=== PATIENT | female | born 1955 | race Hispanic/Latino ===

== ENCOUNTER 2017-03-04 10:01 | Outpatient (CLI) | payer BC ==
--- NOTE | 2017-03-04 14:04 | Magnetic Resonance Report ---
MRI BRAIN WITHOUT AND WITH CONTRAST: 03/04/17 00:00:00 CLINICAL: Lung cancer. TECHNIQUE: Axial diffusion, T1, FLAIR, gradient echo T2*, and coronal and axial T2 and sagittal T1 plus coronal and axial postcontrast T1 sequences on a 1.5 Keira magnet. 15.0 cc of Multihance was injected intravenously for the contrast portion of the exam. Consent was obtained prior to the administration of contrast. FINDINGS: The ventricles and sulci are large for age. Extensive lateral paraventricular white matter hyperintensities on FLAIR and T2. No restricted diffusion. No mass or enhancing lesion. No hemorrhage, edema or extra-axial collection. Normal pituitary and optic chiasm. The brainstem and cerebellum are normal. Intact vascular flow voids. The orbits, sinuses and soft tissues are normal. Normal calvarium and skull base. IMPRESSION: 1. No evidence of metastasis. 2. Global cortical atrophy and extensive bilateral chronic white matter microangiopathy.
== END 2017-03-04 10:02 | disposition home or self-care (01) ==
LOC: SPVIMAG 10:01
PROVIDERS: ATTEND Internal Medicine Hematology & Oncology
DX: C34.12 Malignant neoplasm of upper lobe, left bronchus or lung (principal); G31.89 Other specified degenerative diseases of nervous system; I73.89 Other specified peripheral vascular diseases
CPT/HCPCS: 70553; A9577

== ENCOUNTER 2017-03-24 05:56 | Outpatient (CLI) | payer BC ==
--- NOTE | 2017-03-24 14:57 | PET Report ---
PET SB TO MT SUBSEQUENT: HISTORY: Malignant neoplasm of upper lobe, left lung, restaging. TECHNIQUE: 15.1 millicuries F-18 FDG was administered intravenously. Noncontrast CT images and PET images were obtained from the skull base to the proximal thighs. Fused images were reviewed on a workstation. The patient's blood glucose level measured 97. COMPARISON: 09/23/16. FINDINGS: BRAIN: physiologic FDG uptake in the imaged brain. NECK: physiologic FDG uptake. MEDIASTINUM: physiologic FDG uptake. LUNGS: physiologic FDG uptake. Partial left pneumonectomy changes are suspected. No recurrent pulmonary mass or nodule. PLEURA/PERICARDIUM: physiologic FDG uptake. THORACIC LYMPH NODES: physiologic FDG uptake. HEPATOBILIARY: physiologic FDG uptake. Mean liver SUV measures 3.6. PANCREAS: physiologic FDG uptake. SPLEEN: physiologic FDG uptake. ADRENAL GLANDS: physiologic FDG uptake. No change in the 1.2 cm left adrenal adenoma. KIDNEYS/RENAL COLLECTING SYSTEMS: physiologic FDG uptake. BOWEL/MESENTERY: physiologic FDG uptake. PELVIC VISCERA: physiologic FDG uptake. ABDOMINAL/PELVIC LYMPH NODES: physiologic FDG uptake. MUSCULOSKELETAL: physiologic FDG uptake. There are numerous sclerotic bony lesions throughout the thoracic spine, lumbar spine, pelvis, and left scapula. Overall these appear stable in size and contour since the previous exam but hypermetabolic activity has resolved. Left hip replacement has been performed since the previous exam. IMPRESSION: A positive response to therapy is demonstrated since 10/01 exam. The patient is status post partial left pneumonectomy. There are numerous sclerotic bony lesions which appear stable in size and number. Hypermetabolic activity has resolved in these bony lesions since 09/23/16. No new areas of disease are identified.
== END 2017-03-24 05:57 | disposition home or self-care (01) ==
LOC: PET 05:56
PROVIDERS: ATTEND Internal Medicine Hematology & Oncology
DX: C34.12 Malignant neoplasm of upper lobe, left bronchus or lung (principal); D35.02 Benign neoplasm of left adrenal gland; M89.8X8 Other specified disorders of bone, other site; Z96.642 Presence of left artificial hip joint; Z90.2 Acquired absence of lung [part of]
CPT/HCPCS: 78815; 82962; A9552

== ENCOUNTER 2017-05-24 11:30 | Outpatient (CLI) | payer BC | END 2017-05-24 11:31 | disposition home or self-care (01) | LOC: CARD 11:30 | PROVIDERS: ATTEND Internal Medicine Hematology & Oncology | DX: C34.12 Malignant neoplasm of upper lobe, left bronchus or lung (principal) | CPT/HCPCS: 93005; 93010 ==

== ENCOUNTER 2017-06-16 07:09 | Outpatient (CLI) | payer BC ==
--- NOTE | 2017-06-16 12:51 | PET Report ---
PET/CT:06/16/17 07:09:00 CLINICAL: Lung cancer restaging. RADIOPHARMACEUTICAL: 14.33mCi F18-FDG. COMPARISON: 03/24/17 PET/CT TECHNIQUE- Following intravenous injection of F-18 FDG and an approximately 60 minute uptake period, CT and PET images from the mid skull to the upper thighs were acquired with the patient in the fasted state. No contrast was administered. The CT protocol used for this PET CT study is designed for attenuation correction and anatomic localization of PET abnormalities. This rug renovator CT is not desired to produce and cannot replace, fgvsp-cg-tfy-art diagnostic CT scans with specific imaging protocols for different body parts and indications. Plasma glucose at the time of this test: 89g/dl. The standardized uptake values (SUV) are normalized to patient body weight and indicate the highest activity concentration (SUV max) in a given disease site. FINDINGS: Brain--Physiologic FDG uptake in the visualized regions of the brain. Neck--Physiologic FDG uptake . Chest--Physiologic FDG uptake in mediastinal blood pool and myocardium. Lungs--No abnormal uptake. No pulmonary nodule or mass. Pleura/pericardium--No abnormal uptake. Stable small loculated inferior medial left pleural effusion. Thoracic nodes--No abnormal uptake. Hepatobiliary--No abnormal uptake. Liver background SUV mean, as a reference for comparing FDG studies, is 4.2 compared to 3.6 on the last exam. No liver mass. Spleen--No abnormal uptake. Pancreas--No abnormal uptake. Adrenal Glands--No abnormal uptake. Stable 1.2 cm left adrenal adenoma. Kidneys/Ureters/Bladder--No abnormal uptake. Abdominopelvic Nodes--No abnormal uptake. Bowel/Peritoneum/Mesentery--No abnormal uptake. Pelvic organs--No abnormal uptake. Bones/Soft Tissues--No abnormal uptake. Stable numerous non-FDG evident sclerotic bone metastases involving the thoracic spine, left scapula, lumbar spine, pelvis and right femur. No new bone lesions. Other findings: Intact bilateral breast implants. Status post cholecystectomy. Status post hysterectomy. Status post left total hip replacement. IMPRESSION- Stable disease
== END 2017-06-16 07:10 | disposition home or self-care (01) ==
LOC: PET 07:09
PROVIDERS: ATTEND Internal Medicine Hematology & Oncology
DX: C34.12 Malignant neoplasm of upper lobe, left bronchus or lung (principal); J90 Pleural effusion, not elsewhere classified; D35.02 Benign neoplasm of left adrenal gland; Z98.82 Breast implant status; Z90.49 Acquired absence of other specified parts of digestive tract; Z90.710 Acquired absence of both cervix and uterus; Z96.642 Presence of left artificial hip joint; Z79.899 Other long term (current) drug therapy
CPT/HCPCS: 78815; 82962; A9552

== ENCOUNTER 2017-09-01 09:16 | Outpatient (CLI) | payer BC ==
--- NOTE | 2017-09-05 10:07 | PET Report ---
PET/CT:09/01/17 09:16:00 CLINICAL: RADIOPHARMACEUTICAL: mCi F18-FDG. COMPARISON: PET/CT TECHNIQUE- Following intravenous injection of F-18 FDG and an approximately 60 minute uptake period, CT and PET images from the mid skull to the upper thighs were acquired with the patient in the fasted state. No contrast was administered. The CT protocol used for this PET CT study is designed for attenuation correction and anatomic localization of PET abnormalities. This real estate agent CT is not desired to produce and cannot replace, knsdv-el-dyo-art diagnostic CT scans with specific imaging protocols for different body parts and indications. Plasma glucose at the time of this test: g/dl. The standardized uptake values (SUV) are normalized to patient body weight and indicate the highest activity concentration (SUV max) in a given disease site. FINDINGS: Brain--Physiologic FDG uptake in the visualized regions of the brain. Neck--Physiologic FDG uptake . Chest--Physiologic FDG uptake in mediastinal blood pool and myocardium. Lungs--No abnormal uptake. A 3-4 mm noncalcified right upper lobe non-FDG avid lung nodule is now apparent on a different scanner and in retrospect is stable. Pleura/pericardium--Stable Non--FDG avid loculated left inferior medial pleural collection. Thoracic nodes--No abnormal uptake. Hepatobiliary--No abnormal uptake. Liver background SUV mean, as a reference for comparing FDG studies, is 3.8 compared to 3.5 on the last exam. No liver mass. Spleen--No abnormal uptake. Pancreas--No abnormal uptake. Adrenal Glands--No abnormal uptake. Kidneys/Ureters/Bladder--No abnormal uptake. Abdominopelvic Nodes--No abnormal uptake. Bowel/Peritoneum/Mesentery--No abnormal uptake. Pelvic organs--No abnormal uptake. Bones/Soft Tissues--No abnormal uptake. Stable numerous non-FDG avid sclerotic bone metastases involving the thoracic spine, left scapula, lumbar spine, pelvis and right femur. No new bone lesions. Other findings: Intact bilateral breast implants. Status post cholecystectomy, hysterectomy and left total hip replacement. IMPRESSION- Stable disease.
== END 2017-09-01 09:17 | disposition home or self-care (01) ==
LOC: PET 09:16
PROVIDERS: ATTEND Internal Medicine Hematology & Oncology
DX: C79.51 Secondary malignant neoplasm of bone (principal); C79.89 Secondary malignant neoplasm of other specified sites; C34.12 Malignant neoplasm of upper lobe, left bronchus or lung; Z79.899 Other long term (current) drug therapy; Z98.82 Breast implant status; Z90.49 Acquired absence of other specified parts of digestive tract; Z90.710 Acquired absence of both cervix and uterus; Z96.642 Presence of left artificial hip joint
CPT/HCPCS: 78815; 82962; A9552

== ENCOUNTER 2017-12-29 09:34 | Outpatient (CLI) | payer OTHER ==
--- NOTE | 2018-01-05 08:45 | PET Report ---
PET/CT:12/29/17 09:34:00 CLINICAL: Lung cancer restaging. RADIOPHARMACEUTICAL: 16.4mCi F18-FDG. COMPARISON: 09/01/17 PET/CT TECHNIQUE- Following intravenous injection of F-18 FDG and an approximately 60 minute uptake period, CT and PET images from the mid skull to the upper thighs were acquired with the patient in the fasted state. No contrast was administered. The CT protocol used for this PET CT study is designed for attenuation correction and anatomic localization of PET abnormalities. This crane rigger CT is not desired to produce and cannot replace, krblo-ds-mnd-art diagnostic CT scans with specific imaging protocols for different body parts and indications. Plasma glucose at the time of this test: 54g/dl. The standardized uptake values (SUV) are normalized to patient body weight and indicate the highest activity concentration (SUV max) in a given disease site. FINDINGS: Brain--Physiologic FDG uptake in the visualized regions of the brain. Neck--Physiologic FDG uptake . Chest--Physiologic FDG uptake in mediastinal blood pool and myocardium. Lungs--No abnormal uptake. No pulmonary nodule or mass. Status post partial left pneumonectomy with stable scar. Pleura/pericardium--No abnormal uptake. Thoracic nodes--No abnormal uptake. Hepatobiliary--No abnormal uptake. Liver background SUV mean, as a reference for comparing FDG studies, is 2.9 compared to 3.8 on the last exam. No liver mass. Spleen--No abnormal uptake. Pancreas--No abnormal uptake. Adrenal Glands--No abnormal uptake. Kidneys/Ureters/Bladder--No abnormal uptake. Abdominopelvic Nodes--No abnormal uptake. Bowel/Peritoneum/Mesentery--No abnormal uptake. Pelvic organs--No abnormal uptake. Bones/Soft Tissues--No abnormal uptake. Stable numerous non-FDG avid sclerotic bone metastases involving the thoracic spine, left scapula, lumbar spine, pelvis, sacrum and right femur. No new bone lesions. Other findings: Intact bilateral breast implants. Status post cholecystectomy, hysterectomy and left total hip replacement. IMPRESSION- Stable disease.
== END 2017-12-29 09:35 | disposition home or self-care (01) ==
LOC: PET 09:34
PROVIDERS: ATTEND Internal Medicine Hematology & Oncology
DX: C34.12 Malignant neoplasm of upper lobe, left bronchus or lung (principal); R79.89 Other specified abnormal findings of blood chemistry; Z90.2 Acquired absence of lung [part of]; Z98.82 Breast implant status; Z90.49 Acquired absence of other specified parts of digestive tract; Z90.710 Acquired absence of both cervix and uterus; Z96.642 Presence of left artificial hip joint
CPT/HCPCS: 78815; 82962; A9552

== ENCOUNTER 2018-03-23 11:51 | Outpatient (CLI) | payer MEDICARE ==
--- NOTE | 2018-03-24 12:06 | PET Report ---
PET/CT:03/23/18 11:51:00 CLINICAL: Lung cancer restaging. RADIOPHARMACEUTICAL: 14.36mCi F18-FDG. COMPARISON: 12/29/17 PET/CT TECHNIQUE- Following intravenous injection of F-18 FDG and an approximately 60 minute uptake period, CT and PET images from the mid skull to the upper thighs were acquired with the patient in the fasted state. No contrast was administered. The CT protocol used for this PET CT study is designed for attenuation correction and anatomic localization of PET abnormalities. This dredge pipe installer CT is not desired to produce and cannot replace, gdmkw-lt-haz-art diagnostic CT scans with specific imaging protocols for different body parts and indications. Plasma glucose at the time of this test: 106g/dl. The standardized uptake values (SUV) are normalized to patient body weight and indicate the highest activity concentration (SUV max) in a given disease site. FINDINGS: Brain--Physiologic FDG uptake in the visualized regions of the brain. Neck--Physiologic FDG uptake in mucosal structures. Chest--Physiologic FDG uptake in mediastinal blood pool and myocardium. Lungs--No abnormal uptake. No pulmonary nodule or mass. Status post left partial pneumonectomy with stable scar. Pleura/pericardium--No abnormal uptake. Stable loculated medial left lower lobe pleural fluid. Thoracic nodes--No abnormal uptake. Hepatobiliary--No abnormal uptake. Liver background SUV mean, as a reference for comparing FDG studies, is 3.1 compared to 2.8 on the last exam. No liver mass. Spleen--No abnormal uptake. Pancreas--No abnormal uptake. Adrenal Glands--No abnormal uptake. Kidneys/Ureters/Bladder--No abnormal uptake. Abdominopelvic Nodes--No abnormal uptake. Bowel/Peritoneum/Mesentery--No abnormal uptake. Pelvic organs--No abnormal uptake. Bones/Soft Tissues--No abnormal uptake. Stable numerous non-FDG avid sclerotic bone metastases involving the thoracic spine, left scapula, lumbar spine, pelvis, sacrum and right femur. No new bone lesions. Other findings: Bilateral breast implants. Status post cholecystectomy, hysterectomy and left total hip replacement. IMPRESSION- Stable disease.
== END 2018-03-23 11:52 | disposition home or self-care (01) ==
LOC: PET 11:51
PROVIDERS: ATTEND Internal Medicine Hematology & Oncology
DX: C34.12 Malignant neoplasm of upper lobe, left bronchus or lung (principal); Z98.890 Other specified postprocedural states; Z90.49 Acquired absence of other specified parts of digestive tract; Z90.710 Acquired absence of both cervix and uterus; Z96.642 Presence of left artificial hip joint; Z98.82 Breast implant status
CPT/HCPCS: 78815; 82962; A9552

== ENCOUNTER 2018-05-23 09:47 | Outpatient (CLI) | payer MEDICARE ==
[2018-05-23 10:27] LABS: Blood Urea Nitrogen 19 mg/dL (7-17)
--- NOTE | 2018-05-23 13:18 | Magnetic Resonance Report ---
MRI BRAIN WITHOUT AND WITH CONTRAST: 05/23/18 10:14:00 CLINICAL: Lung cancer. COMPARISON: 03/04/17 TECHNIQUE: Axial diffusion, T1, FLAIR, gradient echo T2*, and coronal and axial T2 and sagittal T1 plus coronal and axial postcontrast T1 sequences on a 1.5 Keira magnet. 13.0 cc of Multihance was injected intravenously for the contrast portion of the exam. Consent was obtained prior to the administration of contrast. FINDINGS: Stable global cortical atrophy with enlargement of ventricles and sulci. No restricted diffusion. Stable extensive bilateral periventricular white matter hyperintensities on FLAIR and T2. No mass or enhancing lesion. No acute or subacute hemorrhage, edema or extra-axial collection. A few bilateral tiny chronic micro-bleeds are new compared to the previous exam and are identified in the left parietal, left frontal and bilateral occipital lobes. Normal pituitary and optic chiasm. The brainstem and cerebellum are normal. Intact vascular flow voids. The orbits, sinuses and soft tissues are normal. Normal calvarium and skull base. IMPRESSION: 1. No evidence of metastasis. 2. No acute change. 3. Stable global cortical atrophy and extensive bilateral chronic white matter microangiopathy. 4. New bilateral chronic micro-bleeds which are consistent with cerebral amyloid angiopathy.
== END 2018-05-23 09:48 | disposition home or self-care (01) ==
LOC: MRI 09:47
PROVIDERS: ATTEND Internal Medicine Hematology & Oncology
DX: C34.12 Malignant neoplasm of upper lobe, left bronchus or lung (principal); G31.89 Other specified degenerative diseases of nervous system; I73.89 Other specified peripheral vascular diseases
CPT/HCPCS: 36415; 70553; 82565; 84520; A9577

== ENCOUNTER 2018-06-29 08:15 | Outpatient (CLI) | payer MEDICARE ==
--- NOTE | 2018-06-30 11:37 | PET Report ---
PET/CT:06/29/18 08:15:00 CLINICAL: Lung cancer restaging. RADIOPHARMACEUTICAL: 14.656mCi F18-FDG. COMPARISON: 03/23/18 PET/CT TECHNIQUE- Following intravenous injection of F-18 FDG and an approximately 60 minute uptake period, CT and PET images from the mid skull to the upper thighs were acquired with the patient in the fasted state. No contrast was administered. The CT protocol used for this PET CT study is designed for attenuation correction and anatomic localization of PET abnormalities. This live in companion CT is not desired to produce and cannot replace, unezz-yz-gdw-art diagnostic CT scans with specific imaging protocols for different body parts and indications. Plasma glucose at the time of this test: 90g/dl. The standardized uptake values (SUV) are normalized to patient body weight and indicate the highest activity concentration (SUV max) in a given disease site. FINDINGS: Brain--Physiologic FDG uptake in the visualized regions of the brain. Neck--New focal FDG uptake in the left tonsillar region with SUV 3.5. Either the left palatine tonsil is enlarged or there is an FDG avid lymph node. A second focus of FDG uptake in the right retropharynx with SUV 3.5. No distinct lymph node or mass is identified. Chest--Physiologic FDG uptake in mediastinal blood pool and myocardium. The right breast implant has collapsed as the last exam. The left breast implant is intact. Lungs--No abnormal uptake. No pulmonary nodule or mass. Status post left partial pneumonectomy and stable scar. Pleura/pericardium--No abnormal uptake. A stable loculated medial left lower lobe pleural effusion. Thoracic nodes--No abnormal uptake. Hepatobiliary--No abnormal uptake. Liver background SUV mean, as a reference for comparing FDG studies, is 3.1 compared to 2.8 on the last exam. No liver mass. Spleen--No abnormal uptake. Pancreas--No abnormal uptake. Adrenal Glands--No abnormal uptake. Kidneys/Ureters/Bladder--No abnormal uptake. Abdominopelvic Nodes--No abnormal uptake. Bowel/Peritoneum/Mesentery--No abnormal uptake. Pelvic organs--No abnormal uptake. Bones/Soft Tissues--No abnormal uptake. Stable numerous non-FDG avid sclerotic bone lesions involving the thoracic spine, left scapula, lumbar spine, pelvis, sacrum and right femur. New new bone lesions. IMPRESSION- 1. New nonspecific FDG uptake in the left palatine tonsil or lymph node adjacent to the tonsil and new nonspecific right retropharyngeal FDG uptake. Consider CT neck with contrast to assess for lymphadenopathy. 2. Status post left partial pneumonectomy with no evidence of chest recurrence or metastasis. 3. Stable skeletal metastasis. 4. No evidence of hepatic or adrenal metastasis. 5. Right breast implant rupture which is a new finding.
== END 2018-06-29 08:16 | disposition home or self-care (01) ==
LOC: PET 08:15
PROVIDERS: ATTEND Internal Medicine Hematology & Oncology
DX: C34.12 Malignant neoplasm of upper lobe, left bronchus or lung (principal); Z90.2 Acquired absence of lung [part of]
CPT/HCPCS: 78815; 82962; A9552

== ENCOUNTER 2018-09-28 10:56 | Outpatient (CLI) | payer MEDICARE ==
--- NOTE | 2018-10-02 08:46 | PET Report ---
PET/CT:09/28/18 10:56:00 CLINICAL: Lung cancer restaging. RADIOPHARMACEUTICAL: 11.458mCi F18-FDG. COMPARISON: 06/29/18 PET/CT TECHNIQUE- Following intravenous injection of F-18 FDG and an approximately 60 minute uptake period, CT and PET images from the mid skull to the upper thighs were acquired with the patient in the fasted state. No contrast was administered. The CT protocol used for this PET CT study is designed for attenuation correction and anatomic localization of PET abnormalities. This aerodynamics professor CT is not desired to produce and cannot replace, cpspn-zf-twk-art diagnostic CT scans with specific imaging protocols for different body parts and indications. Plasma glucose at the time of this test: 104g/dl. The standardized uptake values (SUV) are normalized to patient body weight and indicate the highest activity concentration (SUV max) in a given disease site. FINDINGS: Brain--Physiologic FDG uptake in the visualized regions of the brain. Neck--Physiologic FDG uptake in mucosal structures. The previously described bilateral tonsillar uptake has resolved. No mass or lymphadenopathy. Chest--Physiologic FDG uptake in mediastinal blood pool and myocardium. Lungs--No abnormal uptake. No pulmonary nodule or mass. Status post left partial pneumonectomy with stable scar. Pleura/pericardium--No abnormal uptake. Stable loculated medial left lower lobe pleural effusion. Thoracic nodes--No abnormal uptake. Hepatobiliary--No abnormal uptake. Liver background SUV mean, as a reference for comparing FDG studies, is 3.1 compared to 2.8 on the last exam. No liver mass. Spleen--No abnormal uptake. Pancreas--No abnormal uptake. Adrenal Glands--No abnormal uptake. Kidneys/Ureters/Bladder--No abnormal uptake. Abdominopelvic Nodes--No abnormal uptake. Bowel/Peritoneum/Mesentery--No abnormal uptake. Pelvic organs--No abnormal uptake. Bones/Soft Tissues--No abnormal uptake. Stable sclerotic bone metastases involving the thoracic and lumbar spine, scapulae, pelvic bones and proximal left femur. No new lesions. IMPRESSION- Stable disease.
== END 2018-09-28 10:57 | disposition home or self-care (01) ==
LOC: PET 10:56
PROVIDERS: ATTEND Internal Medicine Hematology & Oncology
DX: C34.12 Malignant neoplasm of upper lobe, left bronchus or lung (principal); J90 Pleural effusion, not elsewhere classified
CPT/HCPCS: 78815; 82962; A9552

== ENCOUNTER 2018-12-21 06:12 | Outpatient (CLI) | payer MEDICARE ==
--- NOTE | 2018-12-21 11:07 | PET Report ---
PET/CT:12/21/18 06:12:00 CLINICAL: Lung cancer restaging. RADIOPHARMACEUTICAL: 13.02mCi F18-FDG. COMPARISON: 09/28/18 PET/CT TECHNIQUE- Following intravenous injection of F-18 FDG and an approximately 60 minute uptake period, CT and PET images from the mid skull to the upper thighs were acquired with the patient in the fasted state. No contrast was administered. The CT protocol used for this PET CT study is designed for attenuation correction and anatomic localization of PET abnormalities. This director nursery school CT is not desired to produce and cannot replace, efbrf-ej-dln-art diagnostic CT scans with specific imaging protocols for different body parts and indications. Plasma glucose at the time of this test: 89g/dl. The standardized uptake values (SUV) are normalized to patient body weight and indicate the highest activity concentration (SUV max) in a given disease site. FINDINGS: Brain--Physiologic FDG uptake in the visualized regions of the brain. Neck--Physiologic FDG uptake in mucosal structures and no abnormal uptake. Chest--Physiologic FDG uptake in mediastinal blood pool and myocardium. Bilateral breast implants have been removed since the last exam. Lungs--No abnormal uptake. No pulmonary nodule or mass. Stable scar status post left partial pneumonectomy. Pleura/pericardium--No abnormal uptake. Stable loculated medial left lower lobe pleural effusion. Thoracic nodes--No abnormal uptake. Hepatobiliary--No abnormal uptake. Liver background SUV mean, as a reference for comparing FDG studies, is 3.3 compared to 3.8 on the last exam. No liver mass. Spleen--No abnormal uptake. Pancreas--No abnormal uptake. Adrenal Glands--No abnormal uptake. Kidneys/Ureters/Bladder--No abnormal uptake. Abdominopelvic Nodes--No abnormal uptake. Bowel/Peritoneum/Mesentery--No abnormal uptake. Pelvic organs--No abnormal uptake. Bones/Soft Tissues--No abnormal uptake. Stable numerous sclerotic bone metastases involving the thoracic and lumbar spine, scapulae, pelvic bones and proximal left femur. No new bone lesions. IMPRESSION- Stable disease.
== END 2018-12-21 06:13 | disposition home or self-care (01) ==
LOC: PET 06:12
PROVIDERS: ATTEND Internal Medicine Hematology & Oncology
DX: C34.12 Malignant neoplasm of upper lobe, left bronchus or lung (principal)
CPT/HCPCS: 78815; 82962; A9552

== ENCOUNTER 2019-03-15 11:12 | Outpatient (CLI) | payer MEDICARE ==
[2019-03-15 13:38] LABS: Blood Urea Nitrogen 22 mg/dL (7-17)
--- NOTE | 2019-03-15 16:22 | Magnetic Resonance Report ---
PROCEDURE: MR BRAIN WO/W CON TECHNIQUE: Magnetic resonance imaging of the brain was performed before and after the IV injection o f paramagnetic contrast. HISTORY: MALIGNANT NEOPLASM OF UPPER LEFT BRONCHUS OR LUNG COMPARISONS: None currently available. FINDINGS: T2/FLAIR hyperintensities in the periventricular and subcortical white matter are nonspecific. Differ ential diagnosis includes migraines, microvascular ischemic disease, demyelinating process, encephali tis/encephalopathy, and trauma. Midline structures are unremarkable. There is no tonsillar ectopy. Age appropriate parker-white matter differentiation is noted. There is no hydrocephalus. There is no mass. There is no hemorrhage. There is no midline shift. There is no restricted diffusion to suggest acute ischemia. The CP angles are grossly noted. Major flow voids are present. After the administration of contrast, no abnormal enhancing lesions are identified. Paranasal sinuses are unremarkable. Globes are intact. Calvarial signal characteristics are grossly unremarkable. Extracranial soft tissues are intact. Mild mucosal thickening both ethmoid sinuses. IMPRESSION: * No acute intracranial findings. * Chronic ischemic disease. This document is electronically signed by Vaibhav Rosario MD., Mar 15 2019 04:20:43 PM ET
--- NOTE | 2019-03-19 11:04 | PET Report ---
PET/CT:03/15/19 11:12:00 CLINICAL: Lung cancer restaging. RADIOPHARMACEUTICAL: 13.27mCi F18-FDG. COMPARISON: 12/21/18 PET/CT TECHNIQUE- Following intravenous injection of F-18 FDG and an approximately 60 minute uptake period, CT and PET images from the mid skull to the upper thighs were acquired with the patient in the fasted state. No contrast was administered. The CT protocol used for this PET CT study is designed for attenuation correction and anatomic localization of PET abnormalities. This poultry field service technician CT is not desired to produce and cannot replace, qbgck-rq-odh-art diagnostic CT scans with specific imaging protocols for different body parts and indications. Plasma glucose at the time of this test: 87g/dl. The standardized uptake values (SUV) are normalized to patient body weight and indicate the highest activity concentration (SUV max) in a given disease site. FINDINGS: Brain--Physiologic FDG uptake in the visualized regions of the brain. Neck--Physiologic FDG uptake in mucosal structures. No mass or lymphadenopathy. Chest--Physiologic FDG uptake in mediastinal blood pool and myocardium. Lungs--No abnormal uptake. Stable scar status post left partial pneumonectomy. No pulmonary nodule or mass. Pleura/pericardium--No abnormal uptake. A stable loculated medial left lower lobe pleural effusion. Thoracic nodes--No abnormal uptake. Hepatobiliary--No abnormal uptake. Liver background SUV mean, as a reference for comparing FDG studies, is 3.9 compared to 3.0 on the last exam. No liver mass. Spleen--No abnormal uptake. Pancreas--No abnormal uptake. Adrenal Glands--No abnormal uptake. Kidneys/Ureters/Bladder--No abnormal uptake. Abdominopelvic Nodes--No abnormal uptake. Bowel/Peritoneum/Mesentery--No abnormal uptake. Pelvic organs--No abnormal uptake. Bones/Soft Tissues--No abnormal uptake. Stable numerous sclerotic bone lesions involving the thoracic and lumbar spine, scapulae, pelvic bones and proximal left femur. No new bone lesions. IMPRESSION- Stable disease.
== END 2019-03-15 11:13 | disposition home or self-care (01) ==
LOC: MRI 11:12
PROVIDERS: ATTEND Internal Medicine Hematology & Oncology
DX: I25.9 Chronic ischemic heart disease, unspecified (principal); C34.12 Malignant neoplasm of upper lobe, left bronchus or lung; R79.89 Other specified abnormal findings of blood chemistry
CPT/HCPCS: 36415; 70553; 78815; 82565; 82962; 84520; A9552

== ENCOUNTER 2019-07-19 09:10 | Outpatient (CLI) | payer MEDICARE ==
--- NOTE | 2019-07-19 15:08 | PET Report ---
PET/CT CLINICAL: Lung cancer restaging. RADIOPHARMACEUTICAL: 13.98 mCi F-18-FDG TECHNIQUE: Following the intravenous injection of F-18-FDG and an approximately 60 minute uptake period, CT and PET images from the mid skull to the upper thighs were acquired with the patient in the fasted state. No contrast was administered. The CT protocol used for this PET CT study is designed for attenuation correction and anatomic localization of PET abnormalities. This non destructive evaluation technician CT is not desired to produ ce and cannot replace [id number] diagnostic CT scans with specific imaging protocols for differ ent body parts and indications. Plasma glucose at the time of this test: 96g/dl The standardized uptake values (SUV) are normalized to patient body weight and indicate the highest a ctivity concentration (SUV max) in a given disease state. FINDINGS: Brain: Physiologic uptake in the visualized regions of the brain. Neck: Physiologic FDG uptake in mucosal structures. No mass or lymphadenopathy. Chest: Physiologic FDG uptake in mediastinal blood pool and myocardium. Lungs: An irregular 6 mm right upper lobe lung nodule with FDG uptake with SUV max 2.6. Stable left l ower lobe scar status post left partial lobectomy. Pleura/pericardium: No abnormal uptake. Thoracic nodes: No abnormal uptake. Hepatobiliary: No abnormal uptake. Liver background SUV mean, as a reference for comparing FDG studie s, is 2.5 compared to 3.9 on the last exam. No liver mass by CT. However, new foci of FDG uptake in t he left hepatic lobe. The largest measures approximately 1 cm with SUV 5.6. Spleen: No abnormal uptake. Pancreas: No abnormal uptake. Adrenal glands: No abnormal uptake. Kidneys/ureters/bladder: No abnormal uptake. Abdominopelvic nodes: No abnormal uptake. Bowel/peritoneum/mesentery: No abnormal uptake. Pelvic organs: No abnormal uptake. Bones/soft tissues: No abnormal uptake. Stable extensive sclerotic metastases involving the spine, sc apulae, pelvic bones and proximal left femur. No new bone lesions. Other findings: None. IMPRESSION: 1. A 6 mm FDG avid right upper lobe lung nodule suspicious for pulmonary metastasis. 2. New multifocal FDG uptake in the left hepatic lobe suspicious for metastasis. 3. Stable skeletal metastasis. Signer Name: Arpan Antoine MD Signed: 07/19/2019 3:04 PM Workstation Name: [id number]
== END 2019-07-19 09:11 | disposition home or self-care (01) ==
LOC: PET 09:10
PROVIDERS: ATTEND Internal Medicine Hematology & Oncology
DX: C79.51 Secondary malignant neoplasm of bone (principal); C34.12 Malignant neoplasm of upper lobe, left bronchus or lung
CPT/HCPCS: 78815; 82962; A9552

== ENCOUNTER 2019-07-31 07:46 | Day surgery (SDC) | payer MEDICARE ==
[2019-07-31] MEDS ORDERED: ZOFRAN IV ONE (08:15)
[2019-07-31] MEDS ORDERED: DILAUDID IV ONE (08:15)
[2019-07-31 08:29] VITALS: BP 123/49
[2019-07-31 09:00] LABS: Basophils % (Auto) 0.3 % (0.0-1.8); Eosinophils # (Auto) 0.1 K/mm3 (0.0-0.4); Eosinophils % (Auto) 1.9 % (0.0-4.3); Hematocrit 35.6 % (30.3-42.9); Hemoglobin 12.3 gm/dl (10.1-14.3); Lymphocytes # (Auto) 0.7 K/mm3 (1.2-5.4); Lymphocytes % (Auto) 19.3 % (13.4-35.0); Mean Corpuscular HGB Conc 35 % (30-34); Mean Corpuscular Volume 92 fl (79-97); Monocytes # (Auto) 0.4 K/mm3 (0.0-0.8); Monocytes % (Auto) 9.8 % (0.0-7.3); Platelet Count 108 K/mm3 (140-440); Red Blood Count 3.86 M/mm3 (3.65-5.03); Red Cell Distribution Width 14.3 % (13.2-15.2)
[2019-07-31 09:15] LABS: Partial Thromboplastin Time 24.6 Sec. (24.2-36.6)
== END 2019-07-31 11:00 | disposition home or self-care (01) ==
LOC: CATHLABREC 07:46
PROVIDERS: ATTEND Internal Medicine Hematology & Oncology
DX: C34.12 Malignant neoplasm of upper lobe, left bronchus or lung (principal); H40.9 Unspecified glaucoma; I10 Essential (primary) hypertension; E05.90 Thyrotoxicosis, unspecified without thyrotoxic crisis or storm; F41.9 Anxiety disorder, unspecified; Z53.8 Procedure and treatment not carried out for other reasons; Z79.899 Other long term (current) drug therapy; Z85.3 Personal history of malignant neoplasm of breast; Z90.710 Acquired absence of both cervix and uterus; Z85.830 Personal history of malignant neoplasm of bone; Z96.642 Presence of left artificial hip joint; Z98.890 Other specified postprocedural states; Z86.73 Personal history of transient ischemic attack (TIA), and cerebral infarction without residual deficits; Z79.01 Long term (current) use of anticoagulants
CPT/HCPCS: 36415; 85025; 85610; 85730